=== PATIENT | female | born 1965 | race Caucasian/White ===

== ENCOUNTER 2018-12-29 20:46 | Observation (INO) | payer MEDICAID ==
[2018-12-29] MEDS ORDERED: MVI, ADULT NO.4 WITH VIT K 10 ML, THIAMINE HCL IV 100 MG in 0.9 % SODIUM CHLORIDE 1000M... IV SCH ×3 (22:00)
[2018-12-29 22:09] LABS: ABSOLUTE NEUTROPHIL COUNT 3.88; BASO % 1.7 % (0-6); EOS % 0.3 % (0-6); GRAN % 51.4 % (47-80); HEMATOCRIT 39.1 % (35.0-47.0); HEMOGLOBIN 13.1 gm/dl (11.6-16.0); LYMPH % 39.8 % (16-45); MEAN CELL VOLUME 106.8 fl (81-97); MEAN CORPUSCULAR HGB CONC 33.5 g/dl (32-36); MEAN PLATELET VOLUME 9.3 fl (7.4-10.4); MONO % 6.8 % (0-9); PLATELET COUNT 505 K/uL (130-400); RED BLOOD COUNT 3.66 M/uL (3.80-5.40); RED CELL DISTRIBUTION WIDTH 17.1 % (11.5-14.5); WHITE BLOOD COUNT W/O DIFF 7.5 K/uL (4.2-12.2)
[2018-12-29 22:14] LABS: MEAN CORPUSCULAR HEMOGLOBIN 35.7 pg (27-33)
[2018-12-29 22:18] LABS: BLOOD UREA NITROGEN 6 mg/dL (6-20)
[2018-12-29 22:19] LABS: CREATININE 0.5 mg/dL (0.5-0.9); EST GLOMERULAR FILTRATION RATE > 60 mL/min; LIPASE 5 U/L (13-60)
[2018-12-29 22:20] LABS: ALCOHOL 0.444 g/dL (0-0.010)
[2018-12-29 22:21] LABS: GLUCOSE,RANDOM 120 mg/dL (74-109)
[2018-12-29 22:27] LABS: TOTAL PROTEIN 7.4 g/dL (6.6-8.7)
[2018-12-29 22:31] LABS: ALT/SGPT 27 U/L (<33)
[2018-12-29 22:32] LABS: ALBUMIN 4.9 g/dL (4.0-5.0); ALKALINE PHOSPHATASE 74 U/L (35-104); AST/SGOT 34 U/L (10.0-35.0)
[2018-12-29 22:36] LABS: BILIRUBIN,DIRECT < 0.2 mg/dL (0-0.3)
--- NOTE | 2018-12-29 22:59 | Emergency Department Record ---
History of Present Illness - General Chief complaint: Dehydration Stated complaint: DEHYDRATION Time Seen by Provider: 12/29/18 21:30 Source: Patient Mode of Arrival: Ambulatory Limitations: No limitations - History of Present Illness Initial comments: pt was brought in by her sister and her neighbor because she is intoxicated and they think she is dehydrated and they want her to get help. she was in rehab previously many years ago and went to . she has alcoholic seizures. she states she drinks a fifth a day Onset/Timin -: Days(s) Severity: Moderate Consistency: Constant Associated Symptoms: Denies other symptoms - [place] Coma Scale Eye Response: (4) Open spontaneously Motor Response: (6) Obeys commands Verbal Response: (5) Oriented [place] Total: 15 - Symptoms of Stroke Baseline State: Baseline State - Related Data Home Medications Medication Instructions Recorded Confirmed Last Taken Albuterol Sulfate [Ventolin Hfa] 1 - 2 puff IH .EVERY 4-6 HOURS PRN 12/29/18 12/29/18 Unknown Budesonide/Formoterol Fumarate 10.2 gm IH BID 12/29/18 12/29/18 Unknown [Symbicort 160-4.5 Mcg Inhaler] Lovastatin 20 mg PO DAILY 12/29/18 12/29/18 Unknown Metoprolol Tartrate 100 mg PO DAILY 12/29/18 12/29/18 Unknown Phenytoin Sodium Extended 100 mg PO QHS 12/29/18 12/29/18 Unknown [Dilantin] Allergies Allergy/AdvReac Type Severity Reaction Status Date / Time No Known Drug Allergies Allergy Verified 12/29/18 21:03 Travel Screening - Travel/Exposure Within Last 30 Days Have you traveled within the last 30 days?: No - Travel/Exposure Within Last Year Have you traveled outside the [place] in the last year?: No - Additonal Travel Details Have you been exposed to anyone with a communicable illness?: No - Travel Symptoms Symptom Screening: None Review of Systems ROS unobtainable: Due to mental status Past Medical History - SOCIAL HISTORY Smoking Status: Current every day smoker Alcohol Use: Heavy Alcohol Use Comment: half gallon daily- vodka Drug Use: None - RESPIRATORY Hx Respiratory Disorders: Yes Hx COPD: Yes - CARDIOVASCULAR Hx Cardio Disorders: Yes Hx Cardiac Cath: Yes Hx Heart Attack: Yes Comment:: stents - NEURO Hx Neuro Disorders: No - GI Hx GI Disorders: Yes Hx Rectal Bleeding: Yes - Hx Genitourinary Disorders: No - ENDOCRINE Hx Endocrine Disorders: No - MUSCULOSKELETAL Hx Musculoskeletal Disorders: Yes Comment:: right hip - PSYCH Hx Psych Problems: No - HEMATOLOGY/ONCOLOGY Hx Hematology/Oncology Disorders: No Family Medical History Any Significant Family History?: No Physical Exam - General General Appearance: Alert, Cooperative, Other (intoxicated) - Head Head exam: Normal inspection - Eye Eye exam: Normal appearance, PERRL, EOMI Pupils: Normal accommodation - ENT ENT exam: Normal exam, Mucous membranes moist, Normal external ear exam, Normal orophraynx Ear exam: Normal external inspection. negative: External canal tenderness Nasal Exam: Normal inspection. negative: Discharge, Sinus tenderness Mouth exam: Normal external inspection, Tongue normal Teeth exam: Normal inspection. negative: Dental caries Throat exam: Normal inspection. negative: Tonsillar erythema, Tonsillar exudate - Neck Neck exam: Normal inspection, Full ROM. negative: Tenderness - Respiratory Respiratory exam: Normal lung sounds bilaterally. negative: Respiratory distress - Cardiovascular Cardiovascular Exam: Normal rhythm, Normal heart sounds, Tachycardia - GI/Abdominal GI/Abdominal exam: Soft, Normal bowel sounds. negative: Tenderness - Rectal Rectal exam: Deferred - exam: Deferred - Extremities Extremities exam: Normal inspection, Full ROM, Normal capillary refill. negative: Tenderness - Back Back exam: Reports: Normal inspection, Full ROM. Denies: Muscle spasm, Rash noted, Tenderness - Neurological Neurological exam: Alert, CN II-XII intact, Normal gait, Oriented X3 - Psychiatric Psychiatric exam: Normal affect, Normal mood - Skin Skin exam: Dry, Erythema, Intact, Normal color, Warm Type of lesion: Other (telangtesias) Distribution of rash: Chest Course Vital Signs 12/29/18 12/29/18 21:02 22:32 Temperature 98.8 F Pulse Rate 125 H Pulse Rate [ 105 H Pulse Ox Probe] Respiratory 20 20 Rate Blood Pressure 130/101 Blood Pressure 122/75 [Right Arm] Pulse Ox 94 L 100 - Reevaluation(s) Reevaluation #1: 12/30/18 03:12 pt has decided that she wants to stay and get off alcohol and go to rehab if possible Medical Decision Making - Lab Data Result diagrams: 12/29/18 21:30 12/29/18 21:30 Lab Results 12/29/18 12/29/18 12/29/18 Range/Units 21:30 21:30 21:30 WBC 7.5 (4.2-12.2) K/uL RBC 3.66 L (3.80-5.40) M/uL Hgb 13.1 (11.6-16.0) gm/dl Hct 39.1 (35.0-47.0) % MCV 106.8 H (81-97) fl MCH 35.7 H (27-33) pg MCHC 33.5 (32-36) g/dl RDW 17.1 H (11.5-14.5) % Plt Count 505 H (130-400) K/uL MPV 9.3 (7.4-10.4) fl Gran % 51.4 (47-80) % Lymphocytes % 39.8 (16-45) % Monocytes % 6.8 (0-9) % Eosinophils % 0.3 (0-6) % Basophils % 1.7 (0-6) % Absolute Neutrophils 3.88 Sodium 144 (136-145) mmol/L Potassium 3.4 (3.4-4.5) mmol/L Chloride 97 L (98-107) mmol/L Carbon Dioxide 18.0 L (22-29) mmol/L Anion Gap 29.0 H (7-16) BUN 6 (6-20) mg/dL Creatinine 0.5 (0.5-0.9) mg/dL Estimated GFR > 60 mL/min Random Glucose 120 H (74-109) mg/dL Calcium 9.4 (8.6-10.0) mg/dL Magnesium 1.6 (1.6-2.6) mg/dL Total Bilirubin 0.20 (0.2-1.0) mg/dL Direct Bilirubin < 0.2 (0-0.3) mg/dL AST 34 (10.0-35.0) U/L ALT 27 (<33) U/L Alkaline Phosphatase 74 (35-104) U/L Total Protein 7.4 (6.6-8.7) g/dL Albumin 4.9 (4.0-5.0) g/dL Lipase 5 L (13-60) U/L Ethyl Alcohol 0.444 H (0-0.010) g/dL Disposition Disposition: Admit Clinical Impression: Alcohol dependence Qualifiers: Substance use status: with intoxication Complication of substance-induced cond ition: uncomplicated Qualified Code(s): F10.220 - Alcohol dependence with intoxication, uncomplicated Disposition: Still a Patient at [facility] Decision to Admit: Admit from ER Decision to Admit Date: 12/30/18 Decision to Admit Time: 03:14 Forms: Patient Portal Access Quality - Quality Measures Quality Measures: N/A - Blood Pressure Screening Does Patient Have Any of the Following: Active Dx of HTN Blood Pressure Classification: Hypertensive Reading Systolic Measurement: 130 Diastolic Measurement: 101 Screening for High Blood Pressure: Patient Exclusion, Hx of HTN [[id number]]
[2018-12-29 23:44] LABS: URINE APPEARANCE CLEAR; URINE BILIRUBIN NEGATIVE (NEGATIVE); URINE BLOOD MODERATE (NEGATIVE); URINE COLOR YELLOW; URINE GLUCOSE (UA) NEGATIVE (NEGATIVE); URINE KETONE NEGATIVE (NEGATIVE); URINE LEUKOCYTE ESTERASE NEGATIVE (NEGATIVE); URINE NITRITE NEGATIVE (NEGATIVE); URINE UROBILINOGEN 0.2 E.U./dL (0.20 - 1.00)
[2018-12-29 23:48] LABS: BARBITURATE SCREEN URINE DETECTED; TRICYCLIC ANTIDEPRESSANT SCRN NOT DETECTED
[2018-12-29 23:49] LABS: AMPHETAMINE SCREEN URINE NOT DETECTED; BENZODIAZEPINE SCREEN URINE NOT DETECTED; COCAINE SCREEN URINE NOT DETECTED; METHADONE SCREEN URINE NOT DETECTED; METHAMPHETAMINE SCREEN NOT DETECTED; OPIATE SCREEN URINE NOT DETECTED; OXYCODONE SCREEN URINE NOT DETECTED; PHENCYCLIDINE SCREEN URINE NOT DETECTED; PROPOXYPHENE SCREEN URINE NOT DETECTED; THC SCREEN URINE NOT DETECTED
[2018-12-29 23:51] LABS: URINE BACTERIA FEW; URINE EPITHELIAL CELLS 0 - 2 (FEW); URINE RBC 0 - 2 (NONE SEEN); URINE WBC 0 - 2 (0-2/hpf)
[2018-12-30] MEDS ORDERED: FOSPHENYTOIN SODIUM IV ONE ×2 (00:30→00:38)
[2018-12-30] MEDS ORDERED: SODIUM CHLORIDE 0.9% IV ONE ×2 (00:30→00:38)
[2018-12-30] MEDS ORDERED: ALBUTEROL HFA 8 GM INHALER INH PRN (03:33)
[2018-12-30] MEDS ORDERED: ACETAMINOPHEN 500 MG TABLET PO PRN (03:33)
[2018-12-30] MEDS ORDERED: LORAZEPAM 2 MG/ML VIAL IV PRN ×2 (03:33→09:02)
[2018-12-30] MEDS ORDERED: PNEUM 23-VAL ADULT IM ONE (04:08)
--- NOTE | 2018-12-30 08:45 | History & Physical ---
History of Present Illness - Date of Service Date of Service for History & Physical: 12/30/18 - History of Present Illness Admitting Diagnosis: alcohol dependence and detoxification History of Present Illness: Ms. Lopez is a 53 y/o female brought in by he sister last night after being found to be intoxicated with alcohol while at home last night. The patient says that she cannot recall all the vents of last night but says that her neighbor became concerned and called her sister. She says that she drank a fifth of Vodka which she does just about every day. She says that she is an alcoholic and has been drinking for about 25 years. The patient admits to previous admission to rehab about 20 years ago but has not had any other admissions since. She has past medical history of seizures and coronary artery disease with four stents placed in 2008. On arrival to [facility] ED the patient was described as being weak and disoriented. Initial labs drawn shoed alcohol level 0.4 but no other abnormal labs were noted. The patient was admitted for alcohol withdrawal and hydration. Vitals on admission: BP: 130/101 HR: 125 RR: 20 T: 98.9 O2 sats% : 94 on RA Travel Screening - Travel/Exposure Within Last 30 Days Have you traveled within the last 30 days?: No - Travel/Exposure Within Last Year Have you traveled outside the [place] in the last year?: No - Additonal Travel Details Have you been exposed to anyone with a communicable illness?: No - Travel Symptoms Symptom Screening: Fatigue Past Medical History - SOCIAL HISTORY Smoking Status: Current every day smoker Alcohol Use: Heavy Drug Use: None - RESPIRATORY Hx Respiratory Disorders: Yes Hx COPD: Yes - CARDIOVASCULAR Hx Cardio Disorders: Yes Hx Cardiac Cath: Yes Hx Heart Attack: Yes Comment:: stents - NEURO Hx Neuro Disorders: No - GI Hx GI Disorders: Yes Hx Rectal Bleeding: Yes - Hx Genitourinary Disorders: No - ENDOCRINE Hx Endocrine Disorders: No - MUSCULOSKELETAL Hx Musculoskeletal Disorders: Yes Comment:: right hip - PSYCH Hx Psych Problems: No - HEMATOLOGY/ONCOLOGY Hx Hematology/Oncology Disorders: No Family Medical History Any Significant Family History?: No H&P Meds/Allergies - Allergies Allergies: Allergies Allergy/AdvReac Type Severity Reaction Status Date / Time No Known Drug Allergies Allergy Verified 12/29/18 21:03 - Home Medications Home Medications Medication Instructions Recorded Confirmed Last Taken Albuterol Sulfate [Ventolin Hfa] 1 - 2 puff IH .EVERY 4-6 HOURS PRN 12/29/18 12/29/18 Unknown Budesonide/Formoterol Fumarate 10.2 gm IH BID 12/29/18 12/29/18 Unknown [Symbicort 160-4.5 Mcg Inhaler] Lovastatin 20 mg PO DAILY 12/29/18 12/29/18 Unknown Metoprolol Tartrate 100 mg PO DAILY 12/29/18 12/29/18 Unknown Phenytoin Sodium Extended 100 mg PO QHS 12/29/18 12/29/18 Unknown [Dilantin] - Active Medications Active Medications: Current Medications Acetaminophen (Tylenol 500mg Tab) 1,000 mg PO Q6H PRN PRN Reason: PAIN - MILD(1-4)/FEVER Albuterol Sulfate (Ventolin Hfa) 1 puff INH Q4HR PRN PRN Reason: DIFFICULTY IN BREATHING Lorazepam (Ativan) 1 mg IV Q8H PRN PRN Reason: ALCOHOL WITHDRAWAL Metoprolol Succinate (Toprol Xl) 100 mg PO DAILY JOVANNY Phenytoin Sodium (Dilantin) 100 mg PO QHS JOVANNY Simvastatin (Zocor) 10 mg PO QHS JOVANNY Physical Exam - Vital Signs Vital Signs: Vital Signs - Last 24 Hrs Temp Pulse Pulse Pulse Resp BP BP 12/30/18 07:20 98.7 F 90 17 124/71 12/30/18 05:33 98.0 F 91 H 18 115/71 12/30/18 04:19 94 H 16 12/30/18 03:40 98.8 F 95 H 16 125/79 12/30/18 03:14 97 H 16 109/69 12/30/18 00:33 92 H 16 116/74 12/29/18 22:32 105 H 20 122/75 12/29/18 21:02 98.8 F 125 H 20 130/101 Pulse Ox 12/30/18 07:20 97 12/30/18 05:33 97 12/30/18 04:19 12/30/18 03:40 95 12/30/18 03:14 97 12/30/18 00:33 97 12/29/18 22:32 100 12/29/18 21:02 94 L - General General Appearance: Alert, Cooperative, Other (not oriented to time ) Limitations: No limitations - Head Head exam: Normal inspection - Eye Eye exam: Normal appearance, PERRL, EOMI Pupils: Normal accommodation - ENT ENT exam: Normal exam, Mucous membranes moist, Normal external ear exam, Normal orophraynx Ear exam: Normal external inspection. negative: External canal tenderness Nasal Exam: Normal inspection. negative: Discharge, Sinus tenderness Mouth exam: Normal external inspection, Tongue normal Teeth exam: Normal inspection. negative: Dental caries Throat exam: Normal inspection. negative: Tonsillar erythema, Tonsillar exudate - Neck Neck exam: Normal inspection, Full ROM. negative: Tenderness - Respiratory Respiratory exam: Normal lung sounds bilaterally. negative: Respiratory distress - Cardiovascular Cardiovascular Exam: Normal rhythm, Normal heart sounds, Tachycardia Peripheral Pulses: 3+: Radial (R), Radial (L), Dorsalis Pedis (R), Dorsalis Pedis (L) - GI/Abdominal GI/Abdominal exam: Soft, Normal bowel sounds. negative: Tenderness - Rectal Rectal exam: Deferred - exam: Deferred - Extremities Extremities exam: Normal inspection, Full ROM, Normal capillary refill. negative: Tenderness - Back Back exam: Reports: Normal inspection, Full ROM. Denies: Muscle spasm, Rash noted, Tenderness - Neurological Neurological exam: Alert, CN II-XII intact, Normal gait, Oriented X3 - Psychiatric Psychiatric exam: Normal affect, Normal mood - Skin Skin exam: Dry, Erythema, Intact, Normal color, Warm Type of lesion: Other (telangtesias) Distribution of rash: Chest Results - Labs Result Diagrams: 12/29/18 21:30 12/29/18 21:30 Labs Last 24 Hours: Laboratory Results - last 24 hr 12/29/18 12/29/18 12/29/18 21:30 21:30 21:30 WBC 7.5 RBC 3.66 L Hgb 13.1 Hct 39.1 MCV 106.8 H MCH 35.7 H MCHC 33.5 RDW 17.1 H Plt Count 505 H MPV 9.3 Gran % 51.4 Lymphocytes % 39.8 Monocytes % 6.8 Eosinophils % 0.3 Basophils % 1.7 Absolute Neutrophils 3.88 Sodium 144 Potassium 3.4 Chloride 97 L Carbon Dioxide 18.0 L Anion Gap 29.0 H BUN 6 Creatinine 0.5 Estimated GFR > 60 Random Glucose 120 H Calcium 9.4 Magnesium 1.6 Total Bilirubin 0.20 Direct Bilirubin < 0.2 AST 34 ALT 27 Alkaline Phosphatase 74 Total Protein 7.4 Albumin 4.9 Lipase 5 L Urine Color Urine Appearance Urine pH Ur Specific [place] Urine Protein Urine Glucose (UA) Urine Ketones Urine Blood Urine Nitrite Urine Bilirubin Urine Urobilinogen Ur Leukocyte Esterase Urine RBC Urine WBC Ur Epithelial Cells Urine Bacteria Urine Opiates Screen Ur Oxycodone Screen Urine Methadone Screen Ur Propoxyphene Screen Ur Barbituates Screen Phenytoin Ur Tricyclics Screen Ur Phencyclidine Scrn Ur Amphetamine Screen U Methamphetamines Scrn U Benzodiazepines Scrn Urine Cocaine Screen Urine Cannabis Screen Ethyl Alcohol 0.444 H 12/29/18 12/29/18 12/30/18 23:35 23:35 00:01 WBC RBC Hgb Hct MCV MCH MCHC RDW Plt Count MPV Gran % Lymphocytes % Monocytes % Eosinophils % Basophils % Absolute Neutrophils Sodium Potassium Chloride Carbon Dioxide Anion Gap BUN Creatinine Estimated GFR Random Glucose Calcium Magnesium Total Bilirubin Direct Bilirubin AST ALT Alkaline Phosphatase Total Protein Albumin Lipase Urine Color Yellow Urine Appearance Clear Urine pH 6.0 Ur Specific [place] 1.015 Urine Protein 30 mg/dl H Urine Glucose (UA) Negative Urine Ketones Negative Urine Blood Moderate Urine Nitrite Negative Urine Bilirubin Negative Urine Urobilinogen 0.2 Ur Leukocyte Esterase Negative Urine RBC 0 - 2 Urine WBC 0 - 2 Ur Epithelial Cells 0 - 2 Urine Bacteria Few Urine Opiates Screen Not detected Ur Oxycodone Screen Not detected Urine Methadone Screen Not detected Ur Propoxyphene Screen Not detected Ur Barbituates Screen Detected Phenytoin 2.1 L Ur Tricyclics Screen Not detected Ur Phencyclidine Scrn Not detected Ur Amphetamine Screen Not detected U Methamphetamines Scrn Not detected U Benzodiazepines Scrn Not detected Urine Cocaine Screen Not detected Urine Cannabis Screen Not detected Ethyl Alcohol VTE H&P Assessment - Risk for VTE Risk for VTE: Yes Risk Level: Moderate Risk Assessment Date: 12/30/18 Risk Assessment Time: 08:40 VTE Orders Placed or Will Be Placed: Yes Plan - Inpatient Certification Inpatient Certification: Admit to inpatient care: Based on my medical assessment, after consideration of patient's risk factors (age, co-morbidities and patient presenting symptoms and acuity), I expect that this patient will remain in the hospital greater than or equal to two midnights and that the services needed warrant inpatient care because: Patient Risk Factors: Etoh withdrawal Estimated length of stay: 48 hours The patient may reasonably be expected to be discharged or transferred to a hospital within 96 hours after admission to [facility]. Services needed: Substance abuse counseling/rehab Post hospital care (if known): Etoh dependence detox I certify that my determination is in accordance with my understanding of Medicare requirements for reasonable and necessary inpatient services. 12/30/18 08:41 - Detailed Diagnosis and Plan (1) Alcohol withdrawal Current Visit: Yes Status: Acute Base Code: F10.239 - ALCOHOL DEPENDENCE WITH WITHDRAWAL, UNSPECIFIED Comment: 12/30/18: - CIWA score: 7-8 on examination this morning. Needs close monitoring over the next 24-48 hours. Check CIWA Q4H. Last Etoh approx 12 hours. - Etoh 0.4, CBC w/ diff and CMP WNL> - Supportive care w/ IVF: 0.9% Nacl w/ thiamine and Multivitamins @ 75mL/hr. mirror painter ordered. Ativan 1mg Q15 mins PRN for seizures. - Check CMP, CBC w/ diff in the morning. (2) EtOH dependence Current Visit: Yes Status: Acute Base Code: F10.20 - ALCOHOL DEPENDENCE, UNCOMPLICATED Comment: 12/30/18: - 25 yr history of Etoh abuse. Previous admission for rehab/detox. - Drinks 1/5 Vodka daily. - SW/Case management to assist with rehab options. (3) Seizure disorder Current Visit: Yes Status: Acute Base Code: G40.909 - EPILEPSY, UNSP, NOT INTRACTABLE, WITHOUT STATUS EPILEPTICUS Comment: 12/30/18: - Hx of seizure disorder. Last seizure 2 years ago. - Dilantin not at therapeutic level, 2.1. - Resume home dose of Dilantin 100mg QHS PO. - Seizure/Fall precuations. (4) CAD (coronary artery disease) Current Visit: Yes Status: Acute Base Code: I25.10 - ATHSCL HEART DISEASE OF [place] CORONARY ARTERY W/O ANG PCTRS Comment: 12/30/18: - Hx of ACS s/p four stents placed 04/19/2009. - Resume ASA 81mg, Toprolol XL 100mg and Simvastatin 10mg QHS. - Continuos mirror painter ordered. (5) DVT prophylaxis Current Visit: Yes Status: Acute Base Code: Z29.9 - ENCOUNTER FOR PROPHYLACTIC MEASURES, UNSPECIFIED Comment: 12/30/18: - Lovenox 40mg subq QD. (6) Full code status Current Visit: Yes Status: Acute Base Code: Z78.9 - OTHER SPECIFIED HEALTH STATUS Comment: 12/30/18: - The patient is full code status.
[2018-12-30] MEDS: LORAZEPAM 2 MG/ML VIAL IV PRN ×2 (09:57→22:14)
[2018-12-30] MEDS ORDERED: METOPROLOL SUCC 50 MG TABLET PO SCH (10:00)
[2018-12-30] MEDS: NICOTINE 21 MG/24 HOUR PATCH TD SCH (10:06)
[2018-12-30] MEDS: ENOXAPARIN 40 MG/0.4 ML SYR SQ SCH (10:06)
[2018-12-30] MEDS: MVI, ADULT NO.4 WITH VIT K 10 ML, THIAMINE HCL IV 100 MG in 0.9 % SODIUM CHLORIDE 1000M... IV SCH ×6 (10:07→23:22)
[2018-12-30] MEDS: BREO (FLUTICASONE/VILANTEROL) 200MCG/25MCG INHALER INH SCH (10:18)
[2018-12-30] MEDS ORDERED: METOPROLOL TART 50 MG TABLET PO SCH (10:30)
[2018-12-30] MEDS: METOPROLOL TART 50 MG TABLET PO SCH (11:49)
[2018-12-30] MEDS ORDERED: SIMVASTATIN 10MG TABLET PO SCH (22:00)
[2018-12-30] MEDS ORDERED: PHENYTOIN SODIUM EXTENDED 100 MG CAPSULE PO SCH (22:00)
[2018-12-31 07:16] LABS: ALB/GLOB RATIO 1.9 (1.1-1.8); ALBUMIN 3.7 g/dL (4.0-5.0); ALKALINE PHOSPHATASE 62 U/L (35-104); ALT/SGPT 28 U/L (<33); AST/SGOT 63 U/L (10.0-35.0); BLOOD UREA NITROGEN 6 mg/dL (6-20); CREATININE 0.4 mg/dL (0.5-0.9); EST GLOMERULAR FILTRATION RATE > 60 mL/min; GLUCOSE,RANDOM 82 mg/dL (74-109); TOTAL PROTEIN 5.6 g/dL (6.6-8.7)
[2018-12-31] MEDS: ENOXAPARIN 40 MG/0.4 ML SYR SQ SCH (09:20)
[2018-12-31] MEDS: METOPROLOL TART 50 MG TABLET PO SCH (09:20)
[2018-12-31] MEDS: BREO (FLUTICASONE/VILANTEROL) 200MCG/25MCG INHALER INH SCH (10:10)
[2018-12-31] MEDS: NICOTINE 21 MG/24 HOUR PATCH TD SCH (10:19)
[2018-12-31] MEDS: MVI, ADULT NO.4 WITH VIT K 10 ML, THIAMINE HCL IV 100 MG in 0.9 % SODIUM CHLORIDE 1000M... IV SCH ×3 (12:19)
--- NOTE | 2018-12-31 12:29 | Discharge Summary ---
Providers Discharge Summary Date: 12/31/18 Date of admission: 12/30/18 03:27 Attending physician: ADONIS MACKEY Physical Exam - Vital Signs Vital Signs: Vital Signs - Last 24 Hrs Temp Pulse Pulse Pulse Resp BP Pulse Ox 12/31/18 10:10 84 16 95 12/31/18 09:45 98.7 F 80 20 125/73 95 12/31/18 08:34 83 20 12/31/18 06:00 98.8 F 64 16 97 12/30/18 22:00 98.3 F 73 16 153/84 94 L 12/30/18 21:00 74 16 12/30/18 18:00 98.7 F 87 16 143/85 93 L 12/30/18 12:51 97.9 F 93 H 16 126/72 93 L - General General Appearance: Alert, Cooperative, Other (not oriented to time ) Limitations: No limitations - Head Head exam: Normal inspection - Eye Eye exam: Normal appearance, PERRL, EOMI Pupils: Normal accommodation - ENT ENT exam: Normal exam, Mucous membranes moist, Normal external ear exam, Normal orophraynx Ear exam: Normal external inspection. negative: External canal tenderness Nasal Exam: Normal inspection. negative: Discharge, Sinus tenderness Mouth exam: Normal external inspection, Tongue normal Teeth exam: Normal inspection. negative: Dental caries Throat exam: Normal inspection. negative: Tonsillar erythema, Tonsillar exudate - Neck Neck exam: Normal inspection, Full ROM. negative: Tenderness - Respiratory Respiratory exam: Normal lung sounds bilaterally. negative: Respiratory distress - Cardiovascular Cardiovascular Exam: Normal rhythm, Normal heart sounds, Tachycardia Peripheral Pulses: 3+: Radial (R), Radial (L), Dorsalis Pedis (R), Dorsalis Ped is (L) - GI/Abdominal GI/Abdominal exam: Soft, Normal bowel sounds. negative: Tenderness - Rectal Rectal exam: Deferred - exam: Deferred - Extremities Extremities exam: Normal inspection, Full ROM, Normal capillary refill. negative: Tenderness - Back Back exam: Reports: Normal inspection, Full ROM. Denies: Muscle spasm, Rash noted, Tenderness - Neurological Neurological exam: Alert, CN II-XII intact, Normal gait, Oriented X3 - Psychiatric Psychiatric exam: Normal affect, Normal mood - Skin Skin exam: Dry, Erythema, Intact, Normal color, Warm Type of lesion: Other (telangtesias) Distribution of rash: Chest Hospitalization - Hospitalization Admission Diagnosis: alcohol dependence and detoxification - Problem List/Discharge Diagnosis (1) Alcohol withdrawal Current Visit: Yes Status: Acute Base Code: F10.239 - ALCOHOL DEPENDENCE WITH WITHDRAWAL, UNSPECIFIED Comment: 12/31/18: - CIWA score: 7-8 on examination this morning. Needs close monitoring over the next 24-48 hours. Check CIWA Q4H. Last Etoh approx 12 hours. - Etoh 0.4, Labs within normal limits - Supportive care w/ IVF: 0.9% Nacl w/ thiamine and Multivitamins @ 75mL/hr. cognos developer: no acute changes noted. Ativan 1mg Q15 mins PRN for seizures. Change to Libriumat discharge. (2) EtOH dependence Current Visit: Yes Status: Acute Base Code: F10.20 - ALCOHOL DEPENDENCE, UNCOMPLICATED Comment: 12/31/18: - 25 yr history of Etoh abuse. Previous admission for rehab/detox. - Drinks 1/5 Vodka daily. - SW/Case management to assist with rehab options. (3) Seizure disorder Current Visit: Yes Status: Acute Base Code: G40.909 - EPILEPSY, UNSP, NOT INTRACTABLE, WITHOUT STATUS EPILEPTICUS Comment: 12/31/18: - Hx of seizure disorder. Last seizure 2 years ago. - Dilantin not at therapeutic level, 2.1. - Resume home dose of Dilantin 100mg QHS PO. - Seizure/Fall precuations. (4) CAD (coronary artery disease) Current Visit: Yes Status: Acute Base Code: I25.10 - ATHSCL HEART DISEASE OF [place] CORONARY ARTERY W/O ANG PCTRS Comment: 12/31/18: - Hx of ACS s/p four stents placed 04/19/2009. - Resume ASA 81mg, Toprolol XL 100mg and Simvastatin 10mg QHS. - Continuos cognos developer ordered. (5) DVT prophylaxis Current Visit: Yes Status: Acute Base Code: Z29.9 - ENCOUNTER FOR PROPHYLACTIC MEASURES, UNSPECIFIED Comment: 12/30/18: - Lovenox 40mg subq QD. (6) Full code status Current Visit: Yes Status: Acute Base Code: Z78.9 - OTHER SPECIFIED HEALTH STATUS Comment: 12/31/18: - The patient is full code status. - Hospitalization Course Hospital Course: Ms. Lopez is a 53 y/o female brought in by he sister last night after being found to be intoxicated with alcohol while at home last night. The patient says that she cannot recall all the vents of last night but says that her neighbor became concerned and called her sister. She says that she drank a fifth of Vodka which she does just about every day. She says that she is an alcoholic and has been drinking for about 25 years. The patient admits to previous admission to rehab about 20 years ago but has not had any other admissions since. She has past medical history of seizures and coronary artery disease with four stents placed in 2008. On arrival to [facility] the patient was described as being weak and disoriented. Initial labs drawn shoed alcohol level 0.4 but no other abnormal labs were noted. The patient was admitted for alcohol withdrawal and hydration. Vitals on admission: BP: 130/101 HR: 125 RR: 20 T: 98.9 O2 sats% : 94 on RA Assessment: 12/31/18: The patient is awake, alert and oriented. She has no complaints this morning. She did receive one dose of Ativan overnight but CIWA score is 0 this morning. Discussed admission to alcohol dependence therapy up discharge. Labs are within normal limits and the patient is stable for discharge to a facility today. Procedures: Cardiology Procedures 12/29/18 22:23 Malted Milk Mixer NOW Abnormal Labs: Abnormal Lab Results 12/29/18 12/29/18 12/29/18 Range/Units 21:30 21:30 23:35 RBC 3.66 L (3.80-5.40) M/uL MCV 106.8 H (81-97) fl MCH 35.7 H (27-33) pg RDW 17.1 H (11.5-14.5) % Plt Count 505 H (130-400) K/uL Chloride 97 L (98-107) mmol/L Carbon Dioxide 18.0 L (22-29) mmol/L Anion Gap 29.0 H (7-16) Creatinine (0.5-0.9) mg/dL Random Glucose 120 H (74-109) mg/dL Calcium (8.6-10.0) mg/dL AST (10.0-35.0) U/L Total Protein (6.6-8.7) g/dL Albumin (4.0-5.0) g/dL Albumin/Globulin Ratio (1.1-1.8) Lipase 5 L (13-60) U/L Urine Protein 30 mg/dl H (NEGATIVE) Phenytoin (10.0-20.0) ug/mL Ethyl Alcohol 0.444 H (0-0.010) g/dL 12/30/18 12/31/18 Range/Units 00:01 06:14 RBC (3.80-5.40) M/uL MCV (81-97) fl MCH (27-33) pg RDW (11.5-14.5) % Plt Count (130-400) K/uL Chloride (98-107) mmol/L Carbon Dioxide (22-29) mmol/L Anion Gap (7-16) Creatinine 0.4 L (0.5-0.9) mg/dL Random Glucose (74-109) mg/dL Calcium 8.5 L (8.6-10.0) mg/dL AST 63 H (10.0-35.0) U/L Total Protein 5.6 L (6.6-8.7) g/dL Albumin 3.7 L (4.0-5.0) g/dL Albumin/Globulin Ratio 1.9 H (1.1-1.8) Lipase (13-60) U/L Urine Protein (NEGATIVE) Phenytoin 2.1 L (10.0-20.0) ug/mL Ethyl Alcohol (0-0.010) g/dL Discharge Medications - Discharge Medications Prescriptions: Chlordiazepoxide HCl [Librium] 25 mg PO Q6HR PRN 3 Days #12 capsule PRN Reason: Alcohol Withdrawal Nicotine [Nicotine 21Mg] 1 patch TD Q24H #28 patch Home Medications: Ambulatory Orders Albuterol Sulfate [Ventolin Hfa] 1 - 2 puff IH .EVERY 4-6 HOURS PRN 12/29/18 [Last Taken Unknown] Budesonide/Formoterol Fumarate [Symbicort 160-4.5 Mcg Inhaler] 10.2 gm IH BID 12/29/18 [Last Taken Unknown] Lovastatin 20 mg PO DAILY 12/29/18 [Last Taken Unknown] Metoprolol Tartrate 100 mg PO DAILY 12/29/18 [Last Taken Unknown] Phenytoin Sodium Extended [Dilantin] 100 mg PO QHS 12/29/18 [Last Taken Unknown] Chlordiazepoxide HCl [Librium] 25 mg PO Q6HR PRN 3 Days #12 capsule 12/31/18 [Last Taken Unknown] Nicotine [Nicotine 21Mg] 1 patch TD Q24H #28 patch 12/31/18 [Last Taken Unknown] Thiamine HCl 100 mg PO DAILY #30 tablet 12/31/18 [Last Taken Unknown] Discharge Plan - Discharge Instructions Diet at Discharge: Low Fat, Low Cholesterol Additional Instructions: Take these medication on discharge: 1. Librium 25mg every 6 hours if needed for symptoms of withdrawal. 2. Thiamine 100mg daily and a daily vitamin. Resume all of your home medications as prescribed by your PCP. Follow up with your PCP in 5-7 days of discharge. Arrange for admission to alcohol/substance use rehabilitation. Quality Measures - Quality Measures Quality Measures: Coronary Artery Disease: Antiplatelet Therapy, Documentation of Current Medications in Medical Record, Screening for High Blood Pressure and F/U Documented - Current Medications Quality Measure: Measure #130: Documentation of Current Medications Documentation of Current Medications: <Current Medications Documented/Reviewed> [G8427] - Blood Pressure Screening Quality Measure: Screening for High Blood Pressure and Follow-Up Documented Does Patient Have Any of the Following: No Blood Pressure Classification: Pre-Hypertensive BP Reading Systolic Measurement: 124 Diastolic Measurement: 71 Screening for High Blood Pressure: < Pre-Hypertensive BP, F/U Documented > [G8950] Pre-Hypertensive Follow-up Interventions: Follow-up with rescreen every year. - Coronary Artery Disease Quality Measure: Measure #6: Coronary Artery Disease (CAD) Antiplatelet Therapy: <ASA or clopidogrel prescribed> [7477R] - Elder Abuse Suspicion Index EASI Reference Information: Tatyana MOSLEY, Florence C, Aimee D, Isela Sanford.Development and validation of a tool to assist physicians identification of elder abuse: The Elder Abuse Suspicion Index (EASI ). Journal of Elder Abuse and Neglect, 2008; 20 (3): 276-300.
== END 2018-12-31 16:51 | disposition home or self-care (01) ==
LOC: ER 20:46 → MEDSURG 12-30 03:27 → INTOOBSV 12-30 03:27
PROVIDERS: ADMIT Internal Medicine; ATTEND Internal Medicine
DX: F10.220 Alcohol dependence with intoxication, uncomplicated (principal); F10.239 Alcohol dependence with withdrawal, unspecified; G40.909 Epilepsy, unspecified, not intractable, without status epilepticus; J44.9 Chronic obstructive pulmonary disease, unspecified; I25.2 Old myocardial infarction; Z98.61 Coronary angioplasty status; Z95.5 Presence of coronary angioplasty implant and graft; I25.10 Atherosclerotic heart disease of native coronary artery without angina pectoris; F17.210 Nicotine dependence, cigarettes, uncomplicated; Z87.19 Personal history of other diseases of the digestive system
CPT/HCPCS: 99285 ×2; 96365; 96375; 83735; 83690; 85025; 80076; 80048 ×2; 80053; 81001; 80305; 80185; 94640 ×2; G0378 ×2; G0480; J3490; Q2009; J2060; 80320; 99217; 99220; J1650; J3411; J7030

== ENCOUNTER 2019-04-06 09:01 | Inpatient (IN) | payer SELFPAY ==
[2019-04-06] MEDS ORDERED: ONDANSETRON HCL IV 4 MG/2 ML VIAL IVP ONE (09:05)
[2019-04-06] MEDS ORDERED: 0.9 % SODIUM CHLORIDE 1000ML 1,000 ML IV ONE (09:05)
[2019-04-06] MEDS ORDERED: PANTOPRAZOLE SODIUM IV 40 MG VIAL IVP ONE (09:05)
--- NOTE | 2019-04-06 09:11 | Emergency Department Record ---
History of Present Illness - General Chief complaint: Nausea, Vomiting, Diarrhea Stated complaint: VOMITING Time Seen by Provider: 04/06/19 09:03 Source: Patient Mode of Arrival: Ambulatory Limitations: No limitations - History of Present Illness Initial comments: 54 yo female presents with nausea, vomiting and abdominal pain for three days. She reports she is a long standing alcoholic. She also smokes. She states she is very weak. She has pain in the middle abdomen that radiates all over and to the back. Per EMS she has some dark emesis in a pot at home. No blood in the bowel movements. She has a history of about a 1/5th per day of alcohol. No fever. [facility] PCP [facility] in [facility]. Last alcohol was 3 days ago. She does not feel shaky at this time. She did have a seizure many years ago with withdrawal. No recent admission or ICU admission that she recalls. She has a history of COPD, smoking, CAD, alcohol abuse. MD complaint: Abdominal pain, Nausea, Vomiting -: Days(s) (3) Description of Vomiting: Coffee grounds Description of Diarrhea: Blood-streaked Location: Diffuse Radiation: Epigastric Severity: Moderate Quality: Aching Consistency: Intermittent Improves with: None Worsens with: Eating Context: Alcohol abuse Associated Symptoms: Denies other symptoms - Related Data Home Medications Medication Instructions Recorded Confirmed Last Taken Aspirin [Aspirin EC] 81 mg PO DAILY 04/06/19 04/06/19 1 Day Ago ~04/05/19 Allergies Allergy/AdvReac Type Severity Reaction Status Date / Time No Known Drug Allergies Allergy Verified 04/06/19 09:15 Review of Systems Constitutional: Reports: Malaise, Weakness. Denies: Chills, Fever Eyes: Denies: Eye discharge, Eye pain, Photophobia, Vision change ENT: Denies: Congestion, Throat pain Respiratory: Denies: Cough, Dyspnea, Hemoptysis, Stridor, Wheezes Cardiovascular: Denies: Dyspnea on exertion, Edema, Syncope Gastrointestinal: Reports: Abdominal pain, Hematemesis (dark), Nausea, Vomiting. Denies: Constipation, Diarrhea, Hematochezia, Melena Genitourinary: Denies: Dysuria, Urgency Musculoskeletal: Reports: Back pain. Denies: Arthralgia, Myalgia Skin: Denies: Bruising, Change in color, Rash Neurological: Denies: Headache, Numbness, Weakness Psychiatric: Denies: Anxiety Hematological/Lymphatic: Denies: Easy bleeding, Easy bruising Past Medical History - SOCIAL HISTORY Smoking Status: Current every day smoker Drug Use: None - RESPIRATORY Hx Respiratory Disorders: Yes Hx COPD: Yes - CARDIOVASCULAR Hx Cardio Disorders: Yes Hx Cardiac Cath: Yes Hx Heart Attack: Yes Comment:: stents - NEURO Hx Neuro Disorders: No - GI Hx GI Disorders: Yes Hx Rectal Bleeding: Yes - Hx Genitourinary Disorders: No - ENDOCRINE Hx Endocrine Disorders: No - MUSCULOSKELETAL Hx Musculoskeletal Disorders: Yes Comment:: right hip - PSYCH Hx Psych Problems: No - HEMATOLOGY/ONCOLOGY Hx Hematology/Oncology Disorders: No Physical Exam - General General Appearance: Alert, Oriented x3, Cooperative, No acute distress Limitations: No limitations - Head Head exam: Atraumatic, Normocephalic, Normal inspection - Eye Eye exam: Normal appearance, PERRL. negative: Conjunctival injection, Scleral i cterus - ENT ENT exam: Normal exam, Mucous membranes dry. negative: Mucous membranes moist Ear exam: Normal external inspection Nasal Exam: Normal inspection Mouth exam: Normal external inspection Teeth exam: Normal inspection Throat exam: Normal inspection - Neck Neck exam: Normal inspection. negative: Lymphadenopathy - Respiratory Respiratory exam: Normal lung sounds bilaterally. negative: Rhonchi, Stridor, Wheezes - Cardiovascular Cardiovascular Exam: Regular rate, Normal rhythm, Normal heart sounds - GI/Abdominal GI/Abdominal exam: Soft (flat), Normal bowel sounds, Tenderness (diffusely tender but very soft) - Rectal Rectal exam: Deferred - exam: Deferred - Extremities Extremities exam: Normal inspection. negative: Pedal edema, Tenderness - Back Back exam: Denies: CVA tenderness (R), CVA tenderness (L) - Neurological Neurological exam: Alert, Oriented X3. negative: Altered - Psychiatric Psychiatric exam: Normal affect, Normal mood - Skin Skin exam: Dry, Intact, Normal color, Warm Course - Reevaluation(s) Reevaluation #1: 04/06/19 10:04 No vomiting She still complains of epigatric pain HR improved to 110. CBC reviewed. WBC is 23, Hgb is 13, Plt is 203 CMP reviewed. Na 137, K is 3.4, AG 44, HCO3 14, BUN is 35, CR is 2.1, Prior CR on 03/23/19 was 0.5 LFTs normal Lipase is normal Given the three days of epigastic pain EKG, TROP and CT ordered as well. 04/06/19 10:17 EKG #1: 10:01 Rate: 110 Rhythm: sinus with pvc [place]: normal Intervals: poor R wave, Qtc 524 ST segments: no acute process 04/06/19 10:45 Alcohol is 0.010 04/06/19 12:23 Troponin is indeterminate at 0.066 (renal insufficiency noted as possible cause at well) 04/06/19 12:25 No aspirin will be given with her likely gastritis with dark emesis making GI bleeding a risk. 04/06/19 12:[address] was reviewed. Distended bladder, Distend gall bladder, questionable colonic wall thickening, lower lung field atelectasis vs edema, irregular pole of the kidney. These results were all discussed with the patient. This conversation was had with patient's sister present. 04/06/19 12:50 04/06/19 13:05 The case was discussed with Teresita Kitchen PAPER [employer]TER. She will be hydrated, neuro checks, serial enzymes, CIWA scores, recheck labs after supportive care. 04/06/19 13:08 The patient is resting very comfortably. No tremor. She is relaxed. No nausea or vomiting. Villatoro ordered for distended bladder. Medical Decision Making - Lab Data Result diagrams: 04/06/19 09:10 04/06/19 09:10 Disposition Disposition: Admit Clinical Impression: Dehydration, Renal insufficiency, Alcohol withdrawal Alcohol dependence Qualifiers: Complication of substance-induced condition: with unspecified complication Vomiting Qualifiers: Vomiting type: unspecified Vomiting Intractability: unspecified Nausea presence: unspecified Qualified Code(s): R11.10 - Vomiting, unspecified Disposition: Still a Patient at [facility] Decision to Admit: Admit from ER Decision to Admit Date: 04/06/19 Decision to Admit Time: 12:56 Time Discussed w/Accepting Physician: 12:56 Condition: (2) Stable Time of Disposition: 12:56 Quality - Quality Measures Quality Measures: N/A - Blood Pressure Screening Does Patient Have Any of the Following: Active Dx of HTN Blood Pressure Classification: Normal BP Reading Systolic Measurement: 108 Diastolic Measurement: 74 Screening for High Blood Pressure: Patient Exclusion, Hx of HTN [G9744]
[2019-04-06 09:21] LABS: ABSOLUTE NEUTROPHIL COUNT 22.57; HEMATOCRIT 39.6 % (35.0-47.0); HEMOGLOBIN 13.5 gm/dl (11.6-16.0); MEAN CELL VOLUME 99.2 fl (81-97); MEAN CORPUSCULAR HEMOGLOBIN 33.8 pg (27-33); MEAN CORPUSCULAR HGB CONC 34.1 g/dl (32-36); MEAN PLATELET VOLUME 10.5 fl (7.4-10.4); PLATELET COUNT 204 K/uL (130-400); RED BLOOD COUNT 3.99 M/uL (3.80-5.40); RED CELL DISTRIBUTION WIDTH 15.1 % (11.5-14.5)
[2019-04-06 09:27] LABS: BILIRUBIN,TOTAL 0.4 mg/dL (0.2-1.0); CREATININE 2.1 mg/dL (0.5-0.9); INR 1.1; PARTIAL THROMBOPLASTIN TIME 29.3 SECONDS (24.5-39.1); PROTHROMBIN TIME (PATIENT) 11.1 SECONDS (9.5-12.1)
[2019-04-06 09:28] LABS: TOTAL PROTEIN 7.4 g/dL (6.6-8.7)
[2019-04-06 09:32] LABS: ALB/GLOB RATIO 1.6 (1.1-1.8); ALBUMIN 4.6 g/dL (4.0-5.0)
[2019-04-06 09:35] LABS: ALCOHOL 0.01 g/dL (0-0.010); WHITE BLOOD COUNT W/O DIFF 23.8 K/uL (4.2-12.2)
[2019-04-06 09:37] LABS: PLATELET ESTIMATE NORMAL (NORMAL)
[2019-04-06] MEDS ORDERED: LORAZEPAM 2 MG/ML VIAL IV ONE (09:57)
[2019-04-06] MEDS ORDERED: MVI, ADULT NO.4 WITH VIT K 10 ML, THIAMINE HCL IV 100 MG in SOD CHLOR 0.9% WITH KCL 40M... IV ONE ×6 (10:06→14:44)
[2019-04-06] MEDS ORDERED: LORAZEPAM 2 MG/ML VIAL IV PRN (14:44)
[2019-04-06] MEDS: 0.9 % SODIUM CHLORIDE 1000ML 1,000 ML IV SCH (17:18)
[2019-04-06] MEDS: PHENYTOIN SODIUM EXTENDED 100 MG CAPSULE PO SCH (17:20)
[2019-04-06 18:47] LABS: URINE APPEARANCE CLEAR; URINE BILIRUBIN MODERATE (NEGATIVE); URINE BLOOD LARGE (NEGATIVE); URINE COLOR YELLOW; URINE GLUCOSE (UA) NEGATIVE (NEGATIVE); URINE KETONE 40 mg/dL (NEGATIVE); URINE LEUKOCYTE ESTERASE NEGATIVE (NEGATIVE); URINE NITRITE NEGATIVE (NEGATIVE); URINE UROBILINOGEN 0.2 E.U./dL (0.20 - 1.00)
[2019-04-06 18:50] LABS: URINE RBC 21 - 35 (NONE SEEN); URINE WBC NONE SEEN (0-2/hpf)
[2019-04-06] MEDS: ALBUTEROL HFA 8 GM INHALER INH PRN (23:49)
[2019-04-07] MEDS: 0.9 % SODIUM CHLORIDE 1000ML 1,000 ML IV SCH ×4 (01:19→19:41)
[2019-04-07] MEDS: ALBUTEROL HFA 8 GM INHALER INH PRN (03:38)
--- NOTE | 2019-04-07 06:47 | CT SCAN REPORT ---
DATE: 04/06/2019 at 1154. EXAM: CT OF THE ABDOMEN AND PELVIS WITHOUT CONTRAST. HISTORY: NAUSEA AND VOMITING FOR THREE DAYS. DARK BROWN EMESIS. EPIGASTRIC PAIN. TECHNIQUE: Following oral contrast administration, helical CT examination of the abdomen and pelvis was performed without intravenous contrast utilization. COMPARISON: None. FINDINGS: There are mixed reticular and ground glass opacities in the periphery of the lung bases. A portion of this may relate to chronic interstitial change, though edema or pneumonitis are also likely present. No pleural or pericardial effusion. The heart is not enlarged. Evaluation of the upper abdomen is limited by motion. No suspicious focal lesion is demonstrated within the liver, spleen, nor adrenal glands. The pancreas appears diffusely atrophic with multiple calcifications throughout consistent with chronic pancreatitis. There is moderate distension of the gallbladder without definite calcified gallstone nor gallbladder wall thickening. No gross biliary ductal dilatation. No intra-abdominal nor retroperitoneal lymphadenopathy. There is diffuse atherosclerotic calcification of the aorta and iliac arteries without aneurysmal dilatation. Coarse calcification of the renal artery origin is also suggested. No nephrolithiasis nor hydronephrosis. There are several [id number]-characterize hyperdense nodular areas within the anterior and lateral aspects of the lower pole of the left kidney. These are nonspecific but likely hemorrhagic cysts. There is convex contour deformity of the anterolateral upper pole of the left kidney measuring 10 mm. This area is relatively isodense to adjacent renal parenchyma. A small, indeterminate mass cannot be excluded. This could represent a ovulation. No focal abnormality of the right kidney. No pelvic mass, lymphadenopathy, nor free pelvic fluid. There is moderate to marked distension of the urinary bladder. There is diverticulosis scattered throughout the colon without convincing evidence of diverticulitis. No evidence of bowel obstruction. There are loops of small bowel in the right lower quadrant with apparent borderline to mild wall thickening. This may just relate to incomplete distension, though mild enteritis would be difficult to exclude. No free intraperitoneal air. No lytic or blastic bone lesion. Orthopedic fixation hardware is present within the visualized right lower extremity. This appears uncomplicated. IMPRESSION: 1. MIXED RETICULAR AND GROUND GLASS OPACITIES IN THE PERIPHERY OF EACH LUNG BASE. THERE MAY BE UNDERLYING COMPONENT OF CHRONIC INTERSTITIAL CHANGE, THOUGH ACTIVE PNEUMONITIS OR MILD EDEMA CANNOT BE EXCLUDED. 2. CHRONIC CALCIFIC PANCREATITIS. 3. SEVERAL VERY SMALL HYPERDENSITIES PERIPHERALLY IN THE LOWER POLE OF THE LEFT KIDNEY, LIKELY HEMORRHAGIC CYSTS. A 1.0-CM, CONVEX CONTOUR DEFORMITY INVOLVING THE ANTEROLATERAL UPPER LEFT KIDNEY. THIS IS OF INDETERMINATE ETIOLOGY. THIS MAY JUST REPRESENT A OVULATION, THOUGH AN INDETERMINATE MASS CANNOT BE EXCLUDED. FURTHER EVALUATION WITH PRE- AND POST-CONTRAST ADMINISTRATION CT OR MRI EXAMINATION IS RECOMMENDED. 4. MODERATE DISTENSION OF THE GALLBLADDER WITHOUT CHOLELITHIASIS OR GALLBLADDER WALL THICKENING. 5. COLONIC DIVERTICULOSIS. 6. APPARENT BORDERLINE TO MILD WALL THICKENING OF A FEW SEGMENTS OF SMALL BOWEL IN THE RIGHT LOWER QUADRANT. THIS MAY JUST RELATE TO INCOMPLETE DISTENSION, THOUGH MILD INFLAMMATORY CHANGE WOULD BE DIFFICULT TO ENTIRELY EXCLUDE. NO EVIDENCE OF APPENDICITIS. 7. MARKED DISTENSION OF THE URINARY BLADDER. Job Number: [id number] [facility]
[2019-04-07 07:10] LABS: ABSOLUTE NEUTROPHIL COUNT 8.51; BASO % 0.1 % (0-6); EOS % 0.2 % (0-6); HEMATOCRIT 31.7 % (35.0-47.0); HEMOGLOBIN 10.4 gm/dl (11.6-16.0); LYMPH % 10.8 % (16-45); MEAN CORPUSCULAR HEMOGLOBIN 32.8 pg (27-33); MEAN CORPUSCULAR HGB CONC 32.8 g/dl (32-36); MEAN PLATELET VOLUME 11.1 fl (7.4-10.4); MONO % 3.4 % (0-9); PLATELET COUNT 118 K/uL (130-400); RED BLOOD COUNT 3.17 M/uL (3.80-5.40); RED CELL DISTRIBUTION WIDTH 15.4 % (11.5-14.5)
--- NOTE | 2019-04-07 07:25 | History & Physical ---
History of Present Illness - Date of Service Date of Service for History & Physical: 04/07/19 - History of Present Illness Admitting Diagnosis: dehydration, alcohol withdrawal, renal insufficiency History of Present Illness: Bethany Lopez is a 54 y.o. F who presented to the [facility] ED with N/V and abdominal pain x 3 days. Has been had dark emesis but not noticed any blood in stool. Admits to drinking Fifth of alcohol daily but has not drank in 4 days. Denies having had a fever. States that she does have chills but that she is "always cold". States that she has had withdrawals "too bad". Reports that last hospitalization was here in December. Smokes about 1 pk q. 3 days and has been smoking for 40 years. PMHx: COPD, Tobacco use, CAD, LA with 4 stents in 2006, alcohol abuse PCP: Dr. Abbott ([place], [place]) ED Course -Vitals: T 97.8, HR 137, BP 108/54, RR 18, SpO2 99% on RA -Abd CT: No acute process. Chronic calcific pancreatitis, likely hemorrhagic cysts in left kidney, moderate distension of the gallbladder without cholelithiasis or wall thickening, marked distension of urinary bladder -Labs: WBC 23.8, Band Neutrophils 10, Chloride 79, AG 44, BUN 35, Creatinine 2.1 (usually WNL), Ca 7.8, ALT 116 (usually 30s-60s), Trops 0.066 -EKG: NSR with PVC 04/07/19 0700 Vitals: T 98.5, HR 95, BP 116/70, SpO2 94% on RA Pt evaluated while lying in bed. Easily arousable. Stated that she is feeling minimally improved since yesterday. Biggest complaint is GENE. States that she feels like her chest is "strained". Chest discomfort 5/10. Denies having any increase in SOB with activity or noticing any LE swelling. Does have hx of LA with 4 stents and reports that she has not missed any of her daily home medications. Has been very weak x 2-3 days. Overnight, she did not exhibit any withdrawal symptoms per nursing staff. Slept well. No vomiting or diarrhea since admission to floor. Travel Screening - Travel/Exposure Within Last 30 Days Have you traveled within the last 30 days?: No - Travel/Exposure Within Last Year Have you traveled outside the [place] in the last year?: No - Additonal Travel Details Have you been exposed to anyone with a communicable illness?: No - Travel Symptoms Symptom Screening: None Review of Systems Reviewed: No additional complaints except as noted below Constitutional: Reports: Chills, Malaise, Weakness. Denies: Fever ENT: Denies: Congestion, Throat pain Respiratory: Reports: Dyspnea. Denies: Cough, Hemoptysis, Stridor, Wheezes Cardiovascular: Denies: Dyspnea on exertion, Edema, Palpitations, Paroxysmal nocturnal dyspnea, Syncope Endocrine: Reports: Fatigue Gastrointestinal: Reports: Abdominal pain, Hematemesis (dark), Nausea. Denies: Constipation, Diarrhea, Hematochezia, Melena Genitourinary: Denies: Dysuria, Urgency Musculoskeletal: Reports: Back pain. Denies: Arthralgia, Myalgia Skin: Denies: Bruising, Change in color, Rash Neurological: Denies: Headache, Numbness, Weakness Psychiatric: Denies: Anxiety Hematological/Lymphatic: Denies: Easy bleeding, Easy bruising Past Medical History - SOCIAL HISTORY Smoking Status: Current every day smoker Drug Use: None - RESPIRATORY Hx Respiratory Disorders: Yes Hx COPD: Yes - CARDIOVASCULAR Hx Cardio Disorders: Yes Hx Cardiac Cath: Yes Hx Heart Attack: Yes Comment:: stents - NEURO Hx Neuro Disorders: No - GI Hx GI Disorders: Yes Hx Rectal Bleeding: Yes - Hx Genitourinary Disorders: No - ENDOCRINE Hx Endocrine Disorders: No - MUSCULOSKELETAL Hx Musculoskeletal Disorders: Yes Comment:: right hip - PSYCH Hx Psych Problems: No - HEMATOLOGY/ONCOLOGY Hx Hematology/Oncology Disorders: No Family Medical History Any Significant Family History?: Yes H&P Meds/Allergies - Allergies Allergies: Allergies Allergy/AdvReac Type Severity Reaction Status Date / Time No Known Drug Allergies Allergy Verified 04/06/19 09:15 - Home Medications Home Medications Medication Instructions Recorded Confirmed Last Taken Aspirin [Aspirin EC] 81 mg PO DAILY 04/06/19 04/06/19 1 Day Ago ~04/05/19 - Active Medications Active Medications: Current Medications Albuterol Sulfate (Ventolin Hfa) 2 puff INH Q4H PRN PRN Reason: DIFFICULTY IN BREATHING Last Admin: 04/07/19 03:38 Dose: 2 puff Documented by: Sodium Chloride () 1,000 mls @ 125 mls/hr IV .Q8H JOVANNY Last Admin: 04/07/19 01:19 Dose: 125 mls/hr Documented by: Lorazepam (Ativan) 0.5 mg IV Q4H PRN PRN Reason: ANXIETY Metoprolol Tartrate (Lopressor) 100 mg PO DAILY [facility] Phenytoin Sodium (Dilantin) 100 mg PO DAILY [facility] Last Admin: 04/06/19 17:20 Dose: 100 mg Documented by: Physical Exam - Vital Signs Vital Signs: Vital Signs - Last 24 Hrs Temp Pulse Pulse Resp BP BP Pulse Ox 04/07/19 03:40 98.5 F 95 H 16 116/70 94 L 04/07/19 03:38 91 H 20 04/06/19 23:49 99 H 16 93 L 04/06/19 21:00 99 H 16 04/06/19 19:55 98.9 F 108 H 18 129/70 95 04/06/19 18:00 98.7 F 107 H 15 128/74 97 04/06/19 17:48 120 H 16 04/06/19 14:45 120 H 16 120/67 92 L 04/06/19 14:09 98.6 F 118 H 18 98/73 95 04/06/19 11:38 114 H 18 98/63 96 04/06/19 09:46 113 H 18 97 04/06/19 09:06 97.8 F 137 H 18 108/74 99 - General General Appearance: Alert, Oriented x3, Cooperative, No acute distress Limitations: No limitations - Head Head exam: Atraumatic, Normocephalic, Normal inspection - Eye Eye exam: Normal appearance, PERRL. negative: Conjunctival injection, Scleral icterus - ENT ENT exam: Normal exam, Mucous membranes dry. negative: Mucous membranes moist - Neck Neck exam: Normal inspection. negative: Lymphadenopathy - Respiratory Respiratory exam: Normal lung sounds bilaterally. negative: Rhonchi, Stridor, Wheezes - Cardiovascular Cardiovascular Exam: Regular rate, Normal rhythm, Normal heart sounds - GI/Abdominal GI/Abdominal exam: Soft, Normal bowel sounds - Rectal Rectal exam: Deferred - exam: Deferred - Extremities Extremities exam: Normal inspection. negative: Pedal edema, Tenderness - Back Back exam: Denies: CVA tenderness (R), CVA tenderness (L) - Neurological Neurological exam: Alert, Oriented X3. negative: Altered - Psychiatric Psychiatric exam: Normal affect, Normal mood - Skin Skin exam: Dry, Intact, Normal color, Warm Results - Labs Result Diagrams: 04/06/19 09:10 04/06/19 09:10 Labs Last 24 Hours: Laboratory Results - last 24 hr 04/06/19 04/06/19 04/06/19 09:10 09:10 09:10 WBC 23.8 H* RBC 3.99 Hgb 13.5 Hct 39.6 MCV 99.2 H MCH 33.8 H MCHC 34.1 RDW 15.1 H Plt Count 204 MPV 10.5 H Neutrophils % 79.0 Band Neutrophils % 10.0 H Eosinophils % Not Reportable Basophils % Not Reportable Absolute Neutrophils 22.57 Lymphocytes 9.0 L Monocytes 2.0 Platelet Estimate Normal RBC Morphology Normal PT 11.1 INR 1.1 APTT 29.3 Sodium 137 Potassium 3.4 Chloride 79 L Carbon Dioxide 14.0 L Anion Gap 44.0 H BUN 35 H Creatinine 2.1 H Estimated GFR 26 Random Glucose 170 H Calcium 7.8 L Total Bilirubin 0.40 AST 116 H ALT 33 Alkaline Phosphatase 93 Troponin T Total Protein 7.4 Albumin 4.6 Globulin 2.8 Albumin/Globulin Ratio 1.6 Lipase 3 L Urine Color Urine Appearance Urine pH Ur Specific [place] Urine Protein Urine Glucose (UA) Urine Ketones Urine Blood Urine Nitrite Urine Bilirubin Urine Urobilinogen Ur Leukocyte Esterase Urine RBC Urine WBC Ur Epithelial Cells Phenytoin Ethyl Alcohol 0.010 04/06/19 04/06/19 04/06/19 09:10 09:10 15:36 WBC RBC Hgb Hct MCV MCH MCHC RDW Plt Count MPV Neutrophils % Band Neutrophils % Eosinophils % Basophils % Absolute Neutrophils Lymphocytes Monocytes Platelet Estimate RBC Morphology PT INR APTT Sodium Potassium Chloride Carbon Dioxide Anion Gap BUN Creatinine Estimated GFR Random Glucose Calcium Total Bilirubin AST ALT Alkaline Phosphatase Troponin T 0.066 H Total Protein Albumin Globulin Albumin/Globulin Ratio Lipase Urine Color Urine Appearance Urine pH Ur [place] Urine Protein Urine Glucose (UA) Urine Ketones Urine Blood Urine Nitrite Urine Bilirubin Urine Urobilinogen Ur Leukocyte Esterase Urine RBC Urine WBC Ur Epithelial Cells Phenytoin 0.9 L Ethyl Alcohol 04/06/19 04/06/19 18:30 23:38 WBC RBC Hgb Hct MCV MCH MCHC RDW Plt Count MPV Neutrophils % Band Neutrophils % Eosinophils % Basophils % Absolute Neutrophils Lymphocytes Monocytes Platelet Estimate RBC Morphology PT INR APTT Sodium Potassium Chloride Carbon Dioxide Anion Gap BUN Creatinine Estimated GFR Random Glucose Calcium Total Bilirubin AST ALT Alkaline Phosphatase Troponin T 0.027 H Total Protein Albumin Globulin Albumin/Globulin Ratio Lipase Urine Color Yellow Urine Appearance Clear Urine pH 5.0 Ur Specific [place] >= 1.030 Urine Protein 30 mg/dl H Urine Glucose (UA) Negative Urine Ketones 40 mg/dl H Urine Blood Large H Urine Nitrite Negative Urine Bilirubin Moderate H Urine Urobilinogen 0.2 Ur Leukocyte Esterase Negative Urine RBC 21 - 35 Urine WBC None seen Ur Epithelial Cells 3 - 6 Phenytoin Ethyl Alcohol VTE H&P Assessment - Risk for VTE Risk for VTE: Yes Risk Level: Moderate Risk Assessment Date: 04/07/19 Risk Assessment Time: 07:00 VTE Orders Placed or Will Be Placed: Yes Plan - Inpatient Certification Inpatient Certification: Admit to inpatient care: Based on my medical assessment, after consideration of patient's risk factors (age, co-morbidities and patient presenting symptoms and acuity), I expect that this patient will remain in the hospital greater than or equal to two midnights and that the services needed warrant inpatient care because: Patient Risk Factors: [] Estimated length of stay: [] The patient may reasonably be expected to be discharged or transferred to a hospital within 96 hours after admission to [facility]. Services needed: [] Post hospital care (if known): [] I certify that my determination is in accordance with my understanding of Medicare requirements for reasonable and necessary inpatient services. - Detailed Diagnosis and Plan (1) Dehydration Current Visit: Yes Status: Acute Base Code: E86.0 - DEHYDRATION Comment: 04/07/19 -N/V x 4 days, decreased PO intake -Creatinine 2.1, BUN 35, GFR 26 -IV NS @ 125ml/hr (2) Seizure disorder Current Visit: Yes Status: Acute Base Code: G40.909 - EPILEPSY, UNSP, NOT INTRACTABLE, WITHOUT STATUS EPILEPTICUS Comment: 04/07/19 - Hx of seizure disorder. Last seizure 2 years ago. - Resume home dose of Dilantin 100mg QHS PO. - Seizure/Fall precuations - Dilantin level ordered (3) Difficulty breathing Current Visit: Yes Status: Acute Base Code: R06.89 - OTHER ABNORMALITIES OF BREATHING Comment: 04/07/19 -CXR ordered -ABD CT shows Mixed reticular and ground glass opacities in the lung bases -Current smoker, 1pack per 3 days -Troponins trending down, likely r/t renal insuffiency (4) Renal insufficiency Current Visit: Yes Status: Acute Base Code: N28.9 - DISORDER OF KIDNEY AND URETER, UNSPECIFIED Comment: 04/07/19 -Likely d/t dehydration r/t n/v x 3 days -Creatinine 2.1, baseline is 0.5-0.6 -BUN 35 -GFR, baseline >60 -CMP from this a.m. pending -IV NS @ 125ml/hr (5) CAD (coronary artery disease) Current Visit: Yes Status: Acute Base Code: I25.10 - ATHSCL HEART DISEASE OF [place] CORONARY ARTERY W/O ANG PCTRS Comment: 04/07/19 - Hx of ACS s/p four stents placed 04/19/2009. - Resume ASA 81mg, Toprolol XL 100mg and Simvastatin 10mg QHS. - Continuos alarm security or surveillance monitor ordered. (6) DVT prophylaxis Current Visit: Yes Status: Acute Base Code: Z29.9 - ENCOUNTER FOR PROPHYLACTIC MEASURES, UNSPECIFIED Comment: 04/07/19 -Moderate Risk -Lovenox 30mg subq ordered (creatinine clearance 19) (7) Full code status Current Visit: Yes Status: Acute Base Code: Z78.9 - OTHER SPECIFIED HEALTH STATUS Comment: 04/07/19 -Full code
[2019-04-07] MEDS: BREO (FLUTICASONE/VILANTEROL) 200MCG/25MCG INHALER INH SCH (09:32)
[2019-04-07 09:42] LABS: ALB/GLOB RATIO 1.6 (1.1-1.8); ALBUMIN 3.4 g/dL (4.0-5.0); ALT/SGPT 22 U/L (<33); AST/SGOT 61 U/L (10.0-35.0); BLOOD UREA NITROGEN 19 mg/dL (6-20); CREATININE 0.8 mg/dL (0.5-0.9); EST GLOMERULAR FILTRATION RATE > 60 mL/min; GLUCOSE,RANDOM 106 mg/dL (74-109); TOTAL PROTEIN 5.5 g/dL (6.6-8.7)
[2019-04-07] MEDS: PHENYTOIN SODIUM EXTENDED 100 MG CAPSULE PO SCH (10:14)
[2019-04-07] MEDS: ENOXAPARIN 30 MG/0.3 ML SYR SQ SCH (10:15)
[2019-04-07] MEDS: METOPROLOL TART 50 MG TABLET PO SCH (10:15)
[2019-04-07] MEDS ORDERED: ZINC OXIDE 28.35 GM TUBE TOP ONE (10:27)
[2019-04-07] MEDS ORDERED: ZINC OXIDE 28.35 GM TUBE TOP PRN (10:41)
[2019-04-07 11:05] LABS: ALKALINE PHOSPHATASE 54 U/L (35-104)
--- NOTE | 2019-04-07 11:13 | RADIOLOGY REPORT ---
EXAM: CHEST, ONE VIEW HISTORY: DIFFICULTY IN BREATHING. TECHNIQUE: A single upright AP view of the chest was obtained. Comparison: CT abdomen and pelvis without contrast dated 04/06/19. FINDINGS: The heart projects borderline to mildly enlarged. No pulmonary venous hypertension is seen. The thoracic aorta is tortuous and atherosclerotic. Subtle mixed reticular and ground glass opacities are again noted within the peripheral lung bases. Much of this may relate to chronic interstitial change though mild superimposed infiltrate or edema would be difficult to exclude. No lung consolidation, costophrenic angle blunting or pneumothorax. There is a subtle nodular density projecting at the level of the right mid hemithorax measuring 8 mm. This is at the level of the proximal right eighth rib and the inferior margin of the right scapula and may just relate to superimposition of normal shadows. A lung nodule would be difficult to exclude. This area was not included on the prior day CT abdomen examination. No acute osseous abnormality. There is calcification in the upper abdomen consistent with chronic pancreatitis. IMPRESSION: 1. HYPERINFLATION OF THE LUNGS CONSISTENT WITH COPD. 2. MIXED RETICULAR AND GROUND GLASS OPACITIES IN THE LATERAL LUNG BASES, DISCUSSED ABOVE. 3. 8 MM NODULAR OPACITY PROJECTING AT THE RIGHT MID HEMITHORAX LEVEL ALSO DISCUSSED ABOVE. JOB NUMBER: [id number] [facility]
[2019-04-08] MEDS: ONDANSETRON HCL IV 4 MG/2 ML VIAL IVP PRN ×2 (02:35→07:58)
[2019-04-08] MEDS: 0.9 % SODIUM CHLORIDE 1000ML 1,000 ML IV SCH ×2 (05:22→17:29)
[2019-04-08 06:30] LABS: ABSOLUTE NEUTROPHIL COUNT 6.43; BASO % 0.1 % (0-6); EOS % 0.7 % (0-6); GRAN % 77.6 % (47-80); HEMATOCRIT 31.7 % (35.0-47.0); HEMOGLOBIN 10.2 gm/dl (11.6-16.0); LYMPH % 17.3 % (16-45); MEAN CELL VOLUME 102.3 fl (81-97); MEAN CORPUSCULAR HEMOGLOBIN 32.9 pg (27-33); MEAN CORPUSCULAR HGB CONC 32.2 g/dl (32-36); MEAN PLATELET VOLUME 10.6 fl (7.4-10.4); MONO % 4.3 % (0-9); PLATELET COUNT 107 K/uL (130-400); RED CELL DISTRIBUTION WIDTH 15.2 % (11.5-14.5); WHITE BLOOD COUNT W/O DIFF 8.3 K/uL (4.2-12.2)
[2019-04-08 06:49] LABS: BLOOD UREA NITROGEN 11 mg/dL (6-20); CREATININE 0.5 mg/dL (0.5-0.9); EST GLOMERULAR FILTRATION RATE > 60 mL/min; GLUCOSE,RANDOM 92 mg/dL (74-109)
[2019-04-08] MEDS ORDERED: POTASSIUM CHLORIDE 20 MEQ TABLET PO ONE (08:25)
[2019-04-08] MEDS ORDERED: FLU VAC QS 2019-20 (INPT, 6MO+) 60MCG/0.5ML IM ONE (08:57)
--- NOTE | 2019-04-08 09:20 | Discharge Summary ---
Providers Discharge Summary Date: 04/08/19 Date of admission: 04/06/19 14:29 Attending physician: ADONIS ALCANTARA Primary care physician: KURT SANDOVAL M.D. Physical Exam - Vital Signs Vital Signs: Vital Signs - Last 24 Hrs Temp Pulse Pulse Resp BP BP Pulse Ox 04/08/19 08:37 98.2 F 81 12 142/74 92 L 04/08/19 05:36 98.9 F 73 16 118/70 94 L 04/08/19 02:00 98.3 F 68 16 131/70 94 L 04/07/19 22:58 98.6 F 04/07/19 21:00 72 16 04/07/19 20:00 99.5 F 72 16 125/68 94 L 04/07/19 09:38 98 F 124/78 04/07/19 09:35 91 H 18 92 L - General General Appearance: Alert, Oriented x3, Cooperative, No acute distress Limitations: No limitations - Head Head exam: Atraumatic, Normocephalic, Normal inspection - Eye Eye exam: Normal appearance, PERRL. negative: Conjunctival injection, Scleral icterus - ENT ENT exam: Normal exam, Mucous membranes dry. negative: Mucous membranes moist Ear exam: Normal external inspection Nasal Exam: Normal inspection Mouth exam: Normal external inspection Teeth exam: Normal inspection Throat exam: Normal inspection - Neck Neck exam: Normal inspection. negative: Lymphadenopathy - Respiratory Respiratory exam: Normal lung sounds bilaterally. negative: Rhonchi, Stridor, Wheezes - Cardiovascular Cardiovascular Exam: Regular rate, Normal rhythm, Normal heart sounds - GI/Abdominal GI/Abdominal exam: Soft, Normal bowel sounds - Rectal Rectal exam: Deferred - exam: Deferred - Extremities Extremities exam: Normal inspection. negative: Pedal edema, Tenderness - Back Back exam: Denies: CVA tenderness (R), CVA tenderness (L) - Neurological Neurological exam: Alert, Oriented X3. negative: Altered - Psychiatric Psychiatric exam: Normal affect, Normal mood - Skin Skin exam: Dry, Intact, Normal color, Warm Hospitalization - Hospitalization Admission Diagnosis: dehydration, alcohol withdrawal, renal insufficiency - Problem List/Discharge Diagnosis (1) CAD (coronary artery disease) Current Visit: Yes Status: Acute Base Code: I25.10 - ATHSCL HEART DISEASE OF [place] CORONARY ARTERY W/O ANG PCTRS Comment: 04/08/19 - Hx of ACS s/p four stents placed 04/19/2009. - Resume ASA 81mg, Toprolol XL 100mg and Simvastatin 10mg QHS. - No acute changes on monitoring and evaluation advisor. (2) DVT prophylaxis Current Visit: Yes Status: Acute Base Code: Z29.9 - ENCOUNTER FOR PROPHYLACTIC MEASURES, UNSPECIFIED Comment: 04/08/19 -Moderate Risk -Lovenox 30mg subq ordered (creatinine clearance 19) (3) Dehydration Current Visit: Yes Status: Acute Base Code: E86.0 - DEHYDRATION Comment: 04/08/19 -N/V x 4 days, decreased PO intake - Improved kindey function after IVF. (4) EtOH dependence Current Visit: Yes Status: Acute Discharge Diagnosis: Complication of substance-induced condition: with unspecified complication Base Code: F10.20 - ALCOHOL DEPENDENCE, UNCOMPLICATED Comment: 04/08/19: - 25 yr history of Etoh abuse. Previous admission for rehab/detox. - Drinks 1/5 Vodka daily. - Follow up with Dr. Alcantara to begin Vivitrol treatment. (5) Full code status Current Visit: Yes Status: Acute Base Code: Z78.9 - OTHER SPECIFIED HEALTH STATUS Comment: 04/08/19 -Full code (6) Renal insufficiency Current Visit: Yes Status: Acute Base Code: N28.9 - DISORDER OF KIDNEY AND URETER, UNSPECIFIED Comment: 04/08/19: - Resolved. - Bun/Cr: 11/0.5, EGFR >60 - 2/2 dehydration r/t n/v x 3 days -Creatinine 2.1, baseline is 0.5-0.6 - Hospitalization Course Hospital Course: Bethany Lopez is a 54 y.o. F who presented to the [facility] ED with N/V and abdominal pain x 3 days. Has been had dark emesis but not noticed any blood in stool. Admits to drinking Fifth of alcohol daily but has not drank in 4 days. Denies having had a fever. States that she does have chills but that she is "always cold". States that she has had withdrawals "too bad". Reports that last hospitalization was here in December. Smokes about 1 pk q. 3 days and has been smoking for 40 years. PMHx: COPD, Tobacco use, CAD, MA with 4 stents in 2006, alcohol abuse PCP: Dr. Sandoval ([place], [place]) ED Course -Vitals: T 97.8, HR 137, BP 108/54, RR 18, SpO2 99% on RA -Abd CT: No acute process. Chronic calcific pancreatitis, likely hemorrhagic cysts in left kidney, moderate distension of the gallbladder without cholelithiasis or wall thickening, marked distension of urinary bladder -Labs: WBC 23.8, Band Neutrophils 10, Chloride 79, AG 44, BUN 35, Creatinine 2.1 (usually WNL), Ca 7.8, ALT 116 (usually 30s-60s), Trops 0.066 -EKG: NSR with PVC 04/07/19 0700 Vitals: T 98.5, HR 95, BP 116/70, SpO2 94% on RA Pt evaluated while lying in bed. Easily arousable. Stated that she is feeling minimally improved since yesterday. Biggest complaint is GENE. States that she feels like her chest is "strained". Chest discomfort 10/31. Denies having any increase in SOB with activity or noticing any LE swelling. Does have hx of MA with 4 stents and reports that she has not missed any of her daily home medica tions. Has been very weak x 2-3 days. Overnight, she did not exhibit any withdrawal symptoms per nursing staff. Slept well. No vomiting or diarrhea since admission to floor. 04/07-: The patient is alert, awake but still reports some weakness. The chest xray and abdominal CT w/ contrast did not show any acute findings. There was no acute arrhythmias on monitoring and evaluation advisor and troponins were indeternant. Has not vomited since yesterday but says that she feels nauseated. Repeat labs showed potassium 3.2 this morning and she was repleted with 40 meq of potassium. She will be discharged with potassium supplementation, and thiamine. Procedures: Imaging and X-Rays 04/06/19 10:01 ABDOMEN/PELVIS WO CONTRAST [CT] Stat 04/07/19 07:40 CXR [CHEST 1 VIEW] [RAD] Stat Cardiology Procedures 04/06/19 10:01 EKG ONCE 04/06/19 14:44 Clinical Genetics Laboratory Chief .Continuous Abnormal Labs: Abnormal Lab Results 04/06/19 04/06/19 04/06/19 Range/Units 09:10 09:10 09:10 WBC 23.8 H* (4.2-12.2) K/uL RBC (3.80-5.40) M/uL Hgb (11.6-16.0) gm/dl Hct (35.0-47.0) % MCV 99.2 H (81-97) fl MCH 33.8 H (27-33) pg RDW 15.1 H (11.5-14.5) % Plt Count (130-400) K/uL MPV 10.5 H (7.4-10.4) fl Neutrophils % (47-80) % Band Neutrophils % 10.0 H (0-5) % Lymphocytes % (16-45) % Lymphocytes 9.0 L (16-45) % Potassium (3.4-4.5) mmol/L Chloride 79 L (98-107) mmol/L Carbon Dioxide 14.0 L (22-29) mmol/L Anion Gap 44.0 H (7-16) BUN 35 H (6-20) mg/dL Creatinine 2.1 H (0.5-0.9) mg/dL Random Glucose 170 H (74-109) mg/dL Calcium 7.8 L (8.6-10.0) mg/dL AST 116 H (10.0-35.0) U/L Troponin T 0.066 H (0-0.010) ng/mL Total Protein (6.6-8.7) g/dL Albumin (4.0-5.0) g/dL Lipase 3 L (13-60) U/L Urine Protein (NEGATIVE) Urine Ketones (NEGATIVE) Urine Blood (NEGATIVE) Urine Bilirubin (NEGATIVE) Phenytoin (10.0-20.0) ug/mL 04/06/19 04/06/19 04/06/19 Range/Units 09:10 18:30 23:38 WBC (4.2-12.2) K/uL RBC (3.80-5.40) M/uL Hgb (11.6-16.0) gm/dl Hct (35.0-47.0) % MCV (81-97) fl MCH (27-33) pg RDW (11.5-14.5) % Plt Count (130-400) K/uL MPV (7.4-10.4) fl Neutrophils % (47-80) % Band Neutrophils % (0-5) % Lymphocytes % (16-45) % Lymphocytes (16-45) % Potassium (3.4-4.5) mmol/L Chloride (98-107) mmol/L Carbon Dioxide (22-29) mmol/L Anion Gap (7-16) BUN (6-20) mg/dL Creatinine (0.5-0.9) mg/dL Random Glucose (74-109) mg/dL Calcium (8.6-10.0) mg/dL AST (10.0-35.0) U/L Troponin T 0.027 H (0-0.010) ng/mL Total Protein (6.6-8.7) g/dL Albumin (4.0-5.0) g/dL Lipase (13-60) U/L Urine Protein 30 mg/dl H (NEGATIVE) Urine Ketones 40 mg/dl H (NEGATIVE) Urine Blood Large H (NEGATIVE) Urine Bilirubin Moderate H (NEGATIVE) Phenytoin 0.9 L (10.0-20.0) ug/mL 04/07/19 04/07/19 04/07/19 Range/Units 06:16 06:16 06:16 WBC (4.2-12.2) K/uL RBC 3.17 L (3.80-5.40) M/uL Hgb 10.4 L (11.6-16.0) gm/dl Hct 31.7 L (35.0-47.0) % MCV 100.0 H (81-97) fl MCH (27-33) pg RDW 15.4 H (11.5-14.5) % Plt Count 118 L (130-400) K/uL MPV 11.1 H (7.4-10.4) fl Neutrophils % 81.0 H (47-80) % Band Neutrophils % (0-5) % Lymphocytes % 10.8 L (16-45) % Lymphocytes 13.0 L (16-45) % Potassium (3.4-4.5) mmol/L Chloride (98-107) mmol/L Carbon Dioxide (22-29) mmol/L Anion Gap 17.0 H (7-16) BUN (6-20) mg/dL Creatinine (0.5-0.9) mg/dL Random Glucose (74-109) mg/dL Calcium 7.6 L (8.6-10.0) mg/dL AST 61 H (10.0-35.0) U/L Troponin T (0-0.010) ng/mL Total Protein 5.5 L (6.6-8.7) g/dL Albumin 3.4 L (4.0-5.0) g/dL Lipase (13-60) U/L Urine Protein (NEGATIVE) Urine Ketones (NEGATIVE) Urine Blood (NEGATIVE) Urine Bilirubin (NEGATIVE) Phenytoin 1.7 L (10.0-20.0) ug/mL 04/08/19 04/08/19 Range/Units 06:13 06:18 WBC (4.2-12.2) K/uL RBC 3.10 L (3.80-5.40) M/uL Hgb 10.2 L (11.6-16.0) gm/dl Hct 31.7 L (35.0-47.0) % MCV 102.3 H (81-97) fl MCH (27-33) pg RDW 15.2 H (11.5-14.5) % Plt Count 107 L (130-400) K/uL MPV 10.6 H (7.4-10.4) fl Neutrophils % (47-80) % Band Neutrophils % (0-5) % Lymphocytes % (16-45) % Lymphocytes (16-45) % Potassium 3.2 L (3.4-4.5) mmol/L Chloride (98-107) mmol/L Carbon Dioxide (22-29) mmol/L Anion Gap (7-16) BUN (6-20) mg/dL Creatinine (0.5-0.9) mg/dL Random Glucose (74-109) mg/dL Calcium 7.6 L (8.6-10.0) mg/dL AST (10.0-35.0) U/L Troponin T (0-0.010) ng/mL Total Protein (6.6-8.7) g/dL Albumin (4.0-5.0) g/dL Lipase (13-60) U/L Urine Protein (NEGATIVE) Urine Ketones (NEGATIVE) Urine Blood (NEGATIVE) Urine Bilirubin (NEGATIVE) Phenytoin (10.0-20.0) ug/mL Condition at Discharge: (2) Stable Discharge Medications - Discharge Medications Prescriptions: Thiamine HCl 100 mg PO DAILY #30 tablet Ondansetron [Zofran Odt] 4 mg PO Q6H PRN #14 tab.rapdis PRN Reason: Nausea Home Medications: Ambulatory Orders Albuterol Sulfate [Ventolin Hfa] 1 - 2 puff IH .EVERY 4-6 HOURS PRN 12/29/18 [Last Taken 1 Day Ago ~04/05/19] Budesonide/Formoterol Fumarate [Symbicort 160-4.5 Mcg Inhaler] 2 puff IH BID 12/29/18 [Last Taken 1 Day Ago ~04/05/19] Lovastatin 20 mg PO DAILY 12/29/18 [Last Taken 1 Day Ago ~04/05/19] Metoprolol Tartrate 100 mg PO DAILY 12/29/18 [Last Taken 1 Day Ago ~04/05/19] Phenytoin Sodium Extended [Dilantin] 100 mg PO DAILY 12/29/18 [Last Taken 1 Day Ago ~04/05/19] Aspirin [Aspirin EC] 81 mg PO DAILY 04/06/19 [Last Taken 1 Day Ago ~04/05/19] Ondansetron [Zofran Odt] 4 mg PO Q6H PRN #14 tab.rapdis 04/08/19 [Last Taken Unknown] Thiamine HCl 100 mg PO DAILY #30 tablet 04/08/19 [Last Taken Unknown] Discharge Plan - Discharge Instructions Diet at Discharge: Regular Diet Additional Instructions: Appointment with Dr. Alcantara at [facility] on Sunday 04/15 at 1:30. Please bring new patient paperwork with you to this visit. Take Thiamine 100mg daily. Zofran 4 mg every 6 hours for nausea. Resume all other home medications until seen in the clinic by Dr. Alcantara. Quality Measures - Quality Measures Quality Measures: Coronary Artery Disease: Antiplatelet Therapy, Documentation of Current Medications in Medical Record, Screening for High Blood Pressure and F/U Documented - Current Medications Quality Measure: Measure #130: Documentation of Current Medications Documentation of Current Medications: <Current Medications Documented/Reviewed> [G8427] - Blood Pressure Screening Quality Measure: Screening for High Blood Pressure and Follow-Up Documented Does Patient Have Any of the Following: No Blood Pressure Classification: Pre-Hypertensive BP Reading Systolic Measurement: 124 Diastolic Measurement: 78 Screening for High Blood Pressure: < Pre-Hypertensive BP, F/U Documented > [G8950] Pre-Hypertensive Follow-up Interventions: Lifestyle modifications. Lifestyle Modification: Dietary Approaches to Stop Hypertension (DASH) Eating Plan, Dietary Sodium Restriction - Coronary Artery Disease Quality Measure: Measure #6: Coronary Artery Disease (CAD) Antiplatelet Therapy: <ASA or clopidogrel prescribed> [1616F] Medical Reason for NOT Prescribing Antiplatelet: Other Medical Reason - Elder Abuse Suspicion Index EASI Reference Information: Tatyana MOSLEY, Florence C, Aimee Smith, Isela Sanford.Development and validation of a tool to assist physicians identification of elder abuse: The Elder Abuse Suspicion Index (EASI ). Journal of Elder Abuse and Neglect, 2008; 20 (3): 276-300.
[2019-04-08] MEDS ORDERED: PANTOPRAZOLE SODIUM IV 40 MG VIAL IVP ONE (09:26)
[2019-04-08] MEDS: ENOXAPARIN 30 MG/0.3 ML SYR SQ SCH (09:48)
[2019-04-08] MEDS: PHENYTOIN SODIUM EXTENDED 100 MG CAPSULE PO SCH (09:49)
[2019-04-08] MEDS: METOPROLOL TART 50 MG TABLET PO SCH (09:49)
[2019-04-08] MEDS ORDERED: THIAMINE HCL IV 100 MG in 0.9 % SODIUM CHLORIDE 1000ML 1,000 ML IV SCH (10:00)
[2019-04-08] MEDS: BREO (FLUTICASONE/VILANTEROL) 200MCG/25MCG INHALER INH SCH (10:16)
[2019-04-08] MEDS: ALBUTEROL HFA 8 GM INHALER INH PRN (10:20)
== END 2019-04-08 17:10 | disposition home or self-care (01) | DRG 641 ==
LOC: ER 09:01 → MEDSURG 14:29
PROVIDERS: ADMIT Internal Medicine; ATTEND Internal Medicine
DX: E86.0 Dehydration (principal); G40.909 Epilepsy, unspecified, not intractable, without status epilepticus; R06.89 Other abnormalities of breathing; N28.9 Disorder of kidney and ureter, unspecified; I25.10 Atherosclerotic heart disease of native coronary artery without angina pectoris; R19.7 Diarrhea, unspecified; R10.84 Generalized abdominal pain; F10.20 Alcohol dependence, uncomplicated; I25.2 Old myocardial infarction; R33.9 Retention of urine, unspecified; F17.210 Nicotine dependence, cigarettes, uncomplicated; Z98.61 Coronary angioplasty status; Z95.5 Presence of coronary angioplasty implant and graft
CPT/HCPCS: 71045; 74176; 80048; 80053; 80185; 80320; 81001; 83690; 83735; 84132; 84484; 85025; 85027; 85610; 85730; 90686; 93005; 93010; 94640; 96361; 96365; 96366; 96375; 99223; 99239; 99285; C9113; J1650; J2405; J3411; J7030

== ENCOUNTER 2019-06-04 09:24 | Day surgery (SDC) | payer MEDICAID ==
[2019-06-04] MEDS ORDERED: LIDOCAINE 2% MDV (20MG/ML) 20ML VIAL IV ONE (09:25)
[2019-06-04] MEDS ORDERED: PROPOFOL 10 MG/ML VIAL IV ONE (09:25)
--- NOTE | 2019-06-05 09:30 | Operative Note ---
OPERATION: 1. ESOPHAGOGASTRODUODENOSCOPY with biopsy. 2. COLONOSCOPY with cold snare polypectomy. PREOPERATIVE DIAGNOSES: 1. Odynophagia. 2. Colon cancer screening. POSTOPERATIVE DIAGNOSES: 1. Scalloping of the duodenum suspicious for possible celiac sprue. 2. Sarmiento colonic diverticulosis, moderate to severe. 3. Sigmoid colon polyp. PREPARATION QUALITY: Good to excellent. ESTIMATED BLOOD LOSS: Minimum. SPECIMENS: Random duodenal and sigmoid polyp. COMPLICATIONS: None apparent. PROCEDURE: After informed consent was obtained from the patient, she was placed in the left lateral decubitus position in the endoscopy suite, sedated and monitored by the department of anesthesia. A well-lubricated [id number] gastroscope was placed in the posterior oropharynx under direct visualization and passed to the proximal esophagus. The endoscope was advanced through the proximal, mid, and distal esophagus. No lesions were seen throughout the length of the esophagus. The GE junction was unremarkable. The gastric body, antrum, and pylorus were unrevealing. The duodenal bulb and sweep were carefully inspected. In particular, the duodenal sweep demonstrated scalloping of the folds and some mosaic changes to the mucosa suggestive of possible celiac sprue. Random biopsies were obtained. No excessive bleeding was noted. J-turn views of the proximal stomach were unremarkable. The endoscope was then straightened and retracted from the patient. No new esophageal abnormalities or any, in fact, seen. Digital rectal examination revealed no palpable mass. A well-lubricated [id number] colonoscope was inserted into the rectum and advanced to the cecum. Abdominal pressure was required to reduce sigmoid looping despite attempts at reducing any scope loop that was present. Preparation quality was good to excellent. The cecum, cecal bulb, and ileocecal valve were unremarkable. There were sarmiento colonic diverticular changes that were rather severe. No lesions were seen throughout the length of the colon other than a 5 mm sessile polyp in the sigmoid colon which was removed with a cold snare and retrieved. No excessive bleeding was noted. The rectum was unremarkable in forward and J-turn views other than internal hemorrhoids being noted. The endoscope was straightened, the rectal ampulla deflated, and the endoscope was removed. RECOMMENDATIONS: The patient should follow a high-fiber diet. Further recommendations based on tissue histology, particularly if there is evidence of celiac sprue, she should be on a gluten-free diet. A repeat colonoscopy in 5 years will likely be in order pending tissue histology. As always, thank you for allowing me to participate in the healthcare of your patients. EULALIO
== END 2019-06-04 11:15 | disposition home or self-care (01) ==
LOC: HOP 09:24
PROVIDERS: ATTEND Internal Medicine Gastroenterology
DX: Z12.11 Encounter for screening for malignant neoplasm of colon (principal); D12.5 Benign neoplasm of sigmoid colon; K57.30 Diverticulosis of large intestine without perforation or abscess without bleeding; R13.10 Dysphagia, unspecified; K31.89 Other diseases of stomach and duodenum; R56.9 Unspecified convulsions; E78.00 Pure hypercholesterolemia, unspecified; J44.9 Chronic obstructive pulmonary disease, unspecified